=== PATIENT | male | born 1995 | race Caucasian/White ===

== ENCOUNTER 2020-09-21 10:26 | Emergency (ER) | payer OTHER, SELFPAY ==
--- NOTE | 2020-09-21 10:26 | ED.GENADUL_ITS ---
Discharge Plan Disposition Patient Disposition: HOME Condition: Good Discharge Details Clinical Impression: URI (upper respiratory infection) Primary Care Provider: None,None ED Provider: Jeannie Worthy Home Meds and New Rx's Prescriptions: Continued ibuprofen [Advil] 200 MG tablet 400 mg PO PRN PRNRF: 0 Discharge Instructions Instructions: Upper Respiratory Infection (ED) Additional Instructions: Drink plenty of fluids and get plenty of rest. Alternate tylenol and motrin as needed and directed for pain. You can continue to take [id number] DayQuil and NyQuil as needed and directed for your cold symptoms. You could also try Mucinex spray or tablets to help with nasal or chest congestion. You will receive a call from care management regarding a follow-up appointment with the primary care doctor to establish care and for reevaluation. Return immediately to the emergency department if you develop any worsening or new concerning symptoms. Stand Alone Forms: Work Release Discharge Data Discharge Physician: Jeannie Worthy Medical Decision Making 25-year-old male who presents with runny nose and mild cough for the past few days who presents here for return to work note. States his symptoms are improving and he feels better he just needed to be evaluated for a return to work note. His vitals are within normal limits. He appears nontoxic. No acute findings on exam. Patient given work note to return tomorrow. Advised on [id number] s ymptomatic treatment of URI. Advised on Covid tent testing if desired. Patient also requested help with finding a new PCP. Patient placed on care management list to arrange for a follow-up appointment with primary care doctor to establish care and for reevaluation. Usual and customary return precautions given prior to discharge. Medical Records Medical records reviewed: Yes I reviewed the patient's medical records. HPI General Mode of arrival: ambulatory . Date/Time Provider Initiated Documentation: 09/21/20 10:26 . Limitations to Documentation: no limitations . Information obtained by: patient . HPI Narrative: Patient is a 25-year-old male with no diagnosed medical history presents for runny nose, mild cough for the past 2 days requesting a return to work note for tomorrow. Patient states he does not have a primary care doctor and his workplace requested that he come to the ER today for a return to work note for tomorrow. Patient states a few days ago he started with a runny nose which has been mainly clear. He also admits to a minimal cough but denies any fever, nasal congestion, sore throat, ear pain, fatigue production, chest pain, shortness of breath, abdominal pain, vomiting, diarrhea. Denies any recent travel or recent antibiotics. He states he has been taking [id number] DayQuil and NyQuil and Advil cough and cold with relief of his symptoms. He states he also use Mucinex spray once and this is helped as well. Related Data Home Medications Medication Instructions Recorded Confirmed ibuprofen [Advil] 400 mg PO PRN PRN 01/01/16 09/21/20 Allergies Allergy/AdvReac Type Severity Reaction Status Date / Time bees Allergy Intermediate Swelling/Ed Uncoded 09/21/20 10:53 alejandro Review of Systems All systems reviewed & are unremarkable except as noted in HPI and below Constitutional Constitutional: Reports as per HPI, Denies chills and Denies fever(s) Eyes Eyes: Denies blurry vision ENT Ears, Nose, Mouth, and Throat: Denies dizziness, Reports nasal discharge (clear rhinorrhea), Denies sore throat and Denies throat swelling Cardiovascular Cardiovascular: Denies chest pain and Denies dyspnea Respiratory Respiratory: Reports cough and Denies dyspnea Gastrointestinal Gastrointestinal: Denies abdominal pain, Denies diarrhea and Denies vomiting Genitourinary Genitourinary: Denies hematuria and Denies dysuria Musculoskeletal Musculoskeletal: Denies back pain and Denies numbness Integumentary/Breasts Skin/Breast: Denies lesions and Denies rash Neurologic Neurologic: Denies dizziness, Denies localized weakness and Denies numbness Allergic/Immunologic Allergic/Immunologic: Denies throat swelling [facility] Medical History (Updated 09/21/20 @ 11:12 by Jeannie Worthy DO) Chronic headache Surgical History (Updated 09/21/20 @ 11:12 by Jeannie Worthy DO) No significant past surgical history Social History Smoking/Tobacco Use Status: Never Smoking risk assessment performed?: Yes Alcohol Intake: never Drug use: Occasionally Substance use type: marijuana Do you feel safe in your relationship?: Yes Exam Const General: cooperative and healthy appearing Orientation: alert and awake [facility] Head: normal to inspection Ears: hearing grossly normal bilaterally, external ears normal and TM's normal bilaterally General nose exam: external nose normal Face and sinus: normal facial exam Mouth: oral mucosae normal Teeth and gingiva: dentition normal Throat: posterior oropharynx normal Eyes General: appearance normal, both eyes and all related structures Eyelids: eyelids normal Pupils: PERRL EOM: EOM intact bilaterally Neck Neck: normal visual inspection Lymphatic: no lymphadenopathy noted Chest Chest: normal inspection of the chest Resp Effort & Inspection: normal respiratory effort and able to speak in complete sentences Auscultation: clear to auscultation bilaterally Cardio Rate: regular rate Rhythm: regular rhythm GI Inspection: normal to inspection Palpation: soft, not firm, no guarding, no hepatosplenomegaly, no masses and nontender Auscultation: normal bowel sounds Skin General skin exam: no rashes or lesions noted Neuro General: patient alert and patient awake Cognition: normal cognition Speech: speech normal Gait: normal gait Motor: muscle tone normal throughout Sensory Exam: no sensory deficits noted Extrem General: normal to inspection, full ROM and capillary refill normal Psych Appearance: grossly normal Mental Status: mental status grossly normal Speech and Movement: speech and movement normal Affect: normal affect Thought Process: normal
[2020-09-21 10:48] VITALS: BP 114/73; PULSE 74; RESP 16; TEMP 37; O2SAT 97
--- NOTE | 2020-09-21 11:07 | NUR.NOTE ---
Nursing Note:Referral to establish care/follow up given to Care Management. Mariel Rivas
--- NOTE | 2020-09-21 16:06 | CMPROGNOTE_ITS ---
- If Service Date Differs Date of service: 09/21/20 Time of Service: 16:06 Care Management Progress Note Jae is seen in the ED today for an upper respiratory infection. At the request of ED provider, CM coordinates a referral to Nai Neville NP, on-call provider, of [facility] to assist Jae in obtaining a follow up appointment and in establishing care with a PCP. He has [employer] for health insurance.
== END 2020-09-21 11:15 | disposition home or self-care (01) ==
PROVIDERS: Emergency Provider Physician Assistant
DX: J06.9 Acute upper respiratory infection, unspecified (principal)
CPT/HCPCS: 99282; 99283